=== PATIENT | male | born 1985 | race African-American/Black ===

== ENCOUNTER 2020-09-02 12:46 | Observation (INO) | payer OTHER, SELFPAY ==
[2020-09-02 12:47] VITALS: BP 145/83; PULSE 109; RESP 19; TEMP 36.9; O2SAT 95; BMI 58.8
--- NOTE | 2020-09-02 12:50 | CT_ITS ---
STUDY: CT BRAIN WITHOUT CONTRAST REASON FOR EXAM: Male, 35 years old. Seizure RADIATION DOSAGE (If Supplied By Facility): CTDIvol = ( 44.99 ) mGy, DLP = ( 863.60 ) mGycm TECHNIQUE: Transaxial CT imaging of the brain was performed without administration of intravenous contrast material. Individualized dose optimization techniques were used for this CT. COMPARISON: No relevant priors. FINDINGS: Normal soft tissue structures. Normal calvarium. Normal size ventricles and extra-axial spaces for the patient''s age. Normal white matter tracts of the cerebral hemispheres. Normal basal ganglia and thalami. Normal brainstem. Normal cerebellum. There is no intracranial hemorrhage. There are no findings of an acute ischemic infarction. There is a 2.4 cm x 2.1 cm retention cyst or polyp at the base of the left maxillary sinus. CT/Brain/Head without Contrast IMPRESSION: No acute abnormality is seen. Retention cyst or polyp is seen at the base of the left maxillary sinus. Electronically Signed: Tom Bateman MD at 13:25 EDT , Service support ,
--- NOTE | 2020-09-02 12:54 | EKG12_ITS ---
Test Reason : SEIZURE Blood Pressure : / mmHG Vent. Rate : 106 BPM Atrial Rate : 106 BPM P-R Int : 156 ms QRS Dur : 108 ms QT Int : 368 ms P-R-T Axes : 054 067 015 degrees QTc Int : 488 ms Sinus tachycardia Otherwise normal ECG Confirmed by KELSI MARROQUIN, JOSH ([id number]), visual effects editor SANDEE YODER ([id number]) on 09/04/2020 9:39:06 AM Referred By: MARTHA Confirmed By:JOSH DOLAN MD
--- NOTE | 2020-09-02 12:54 | EDS_ITS ---
HPI History of Present Illness Chief Complaint: Seizure Informant: patient and EMS Narrative Narrative: Patient presents after having a full tonic-clonic seizure. He has never had a seizure before. Coworkers state that he was standing talking to him and the patient started to feel weird. He then started to have a full tonic- clonic seizure which lasted about 5 minutes. He did bite his tongue. EMS was called and upon their arrival he was still seizing. They started to draw up Versed but then the patient started to stop seizing. His mental status improved throughout transport. Patient tells me he has no history of seizures. He states that recently he stopped taking diclofenac for back pain but he has not stopped or started any new medications. He states he drinks occasionally is not a daily drinker. He did drink alcohol at a wedding this weekend. He denies any other drug use. He has not had a headache, neck pain. He denies any shortness of breath. [facility] Medical History (Updated 09/02/20 @ 14:[address] Mil Rowland MD) GERD (gastroesophageal reflux disease) Hypertension Home Medications Lisinopril/Hydrochlorothiazide [Zestoretic 20/12.5 Tablet] 1 tab PO DAILY 03/21/14 [History Last Taken Unknown] amlodipine 10 mg PO DAILY 03/21/14 [History Last Taken Unknown] dexlansoprazole [Dexilant] 40 mg PO DAILY 03/21/14 [History Last Taken Unknown] Allergy/AdvReac Type Severity Reaction Status Date / Time No Known Allergies Allergy Verified 09/02/20 12:47 Social History Smoking Status: Never smoker ROS ROS ED Constitutional Constitutional ED: Denies chills or fever(s) Eyes Eyes: Denies blurry vision, change in vision, diplopia or loss of vision ENT ENT ED: Reports other; Denies ear pain, rhinorrhea or sore throat Cardiovascular Cardiovascular: Denies chest pain, palpitations or racing heartbeat Respiratory/Chest Respiratory/Chest: Denies cough, dyspnea, dyspnea on exertion or sputum Gastrointestinal Gastrointestinal: Denies abdominal pain, diarrhea, nausea or vomiting Genitourinary Genitourinary ED: Denies dysuria, hematuria or urinary frequency Musculoskeletal Musculoskeletal: Denies back pain, myalgias or neck pain Integumentary Denies abscess or rash Neurologic Neurologic: Reports other Details: Seizure Psychiatric Psychiatric: Denies anxiety or depression Endocrine Endocrinology: Denies polydipsia or polyuria Hematologic/Lymphatic Hematologic/Lymphatic: Denies easy bleeding or easy bruising Allergic/Immunologic Allergic/Immunologic ED: Denies urticaria EXAM Physical Exam Const Vital Signs: 09/02/20 12:47 Temperature 98.4 F Temperature Source Temporal Pulse Rate 109 H Respiratory Rate 19 H Blood Pressure 145/83 H Blood Pressure Mean 103 Pulse Ox 95 Oxygen Delivery Method Room Air Positive well nourished and well developed General Appearance ED: well developed and NAD HEENT Reports normocephalic and head/scalp atraumatic HEENT Narrative: He does have evidence of tongue trauma with a small bite deepthi on the left side of the tongue. Bleeding is currently controlled. normocephalic and atraumatic; Negative for tenderness Eyes PERRL and EOMs intact bilaterally General Eye ED: Negative for scleral icterus Neck supple and no JVD Chest Wall palpation of chest normal Chest: Negative for tenderness Resp normal respiratory effort and clear to auscultation bilaterally Effort and Inspection: Negative for respiratory distress Cardio regular rhythm; Negative for no murmurs Rate: tachycardic GI soft to palpation, non-tender and non-distended Palpation: soft Back/Spine no CVA tenderness and no thoracic nor lumbar tenderness Cervical Spine: Negative for cervical spine tenderness Extremity normal to inspection General Extremety ED: Negative for tenderness Neuro oriented x3, CN's II-XII intact bilaterally and no sensory deficits noted Sensorium / Orientation: awake and alert Motor Exam: strength 5/5 throughout Psych mental status grossly normal Skin no rashes or lesions noted MDM MDM MDM Narrative Medical decision making narrative: The patient is currently alert and oriented x3. His GCS is 15. I did give him a dose of IV Keppra. His labs show white blood count 12.9, potassium 3.3, carbon dioxide of 20 and an anion gap of 16. His lactate is 8.9, likely due to the seizure. CAT scan of the head is obtained and does not show any acute abnormalities. His alcohol level is normal. His drug screen is negative. At this point I am not quite sure why he had a seizure. Due to this I feel he needs to be admitted to the hospital. Spoke with hospitalist for admission. Lab Data Labs: Laboratory Results - last 24 hr 09/02/20 09/02/20 09/02/20 12:37 12:37 12:37 WBC 12.9 H RBC 5.03 Hgb 13.9 Hct 45.2 MCV 89.9 MCH 27.6 MCHC 30.8 L RDW Std Deviation 44.0 H RDW Coeff of Sujatha 13.4 Plt Count 216 MPV 12.5 H Immature Gran % (Auto) 1.000 H Neut % (Auto) 58.0 Lymph % (Auto) 30.8 Collier % (Auto) 8.5 Eos % (Auto) 1.5 Baso % (Auto) 0.2 Absolute Neuts (auto) 7.5 Absolute Lymphs (auto) 3.98 Nucleated RBC % 0 Sodium 135 L Potassium 3.3 L Chloride 99 Carbon Dioxide 20.0 L Anion Gap 16 H BUN 11 Creatinine 1.22 Estim Creat Clear Calc 103.76 Est GFR (MDRD) Af Amer 87 Est GFR (MDRD) Non-Af 72 BUN/Creatinine Ratio 9.0 L Glucose 126 H Lactic Acid Calcium 8.8 Total Bilirubin 0.50 AST 32 ALT 49 Alkaline Phosphatase 64 Total Protein 8.4 H Albumin 3.9 Globulin 4.5 H Albumin/Globulin Ratio 0.9 Ethyl Alcohol 5.0 09/02/20 12:37 WBC RBC Hgb Hct MCV MCH MCHC RDW Std Deviation RDW Coeff of Sujatha Plt Count MPV Immature Gran % (Auto) Neut % (Auto) Lymph % (Auto) Collier % (Auto) Eos % (Auto) Baso % (Auto) Absolute Neuts (auto) Absolute Lymphs (auto) Nucleated RBC % Sodium Potassium Chloride Carbon Dioxide Anion Gap BUN Creatinine Estim Creat Clear Calc Est GFR (MDRD) Af Amer Est GFR (MDRD) Non-Af BUN/Creatinine Ratio Glucose Lactic Acid 8.9 H* Calcium Total Bilirubin AST ALT Alkaline Phosphatase Total Protein Albumin Globulin Albumin/Globulin Ratio Ethyl Alcohol Radiography Diagnostic Testing: Radiology Impression Brain CT 09/02/20 12:50 IMPRESSION: No acute abnormality is seen. Retention cyst or polyp is seen at the base of the left maxillary sinus. Electronically Signed: Tom Bateman MD at 13:25 EDT , Service support , EKG Initial EKG: Comments: Sinus tachycardia with a rate of 106. No ST changes noted. QTc 488, SC interval 156 Critical Care Time Critical Care Time: Yes Critical care time (excluding procedures): 30-74 minutes (30 minutes), Discussing w/Patient &/or Family/[employer]er, Discussing w/Consultants, Arranging Admission or Transfer and Performing Direct Patient Care at Bedside Discharge Plan Triage Chief Complaint: Seizure ED Provider: Mil Rowland Dx/Rx/DC Orders Clinical Impression: New onset seizure Prescriptions: No Action amlodipine 5 MG tablet 10 mg PO DAILY RF: 0 Dexilant 30 MG capsule,biphase delayed releas 40 mg PO DAILY RF: 0 Lisinopril/Hydrochlorothiazide [Zestoretic 20/12.5 Tablet] 1 TABLET tablet 1 tab PO DAILY RF: 0 Referrals: Rekha Galindo [Other] Disposition Disposition: Acute Care [facility]
[2020-09-02 13:02] LABS: Absolute Lymphocyte Count 3.98 X10^3/uL (0.83-4.51); Absolute Neutrophil Count 7.5 X10^3/uL (2.0-7.7); Basophil# 0.03 X10^3/uL; Basophil% 0.2 % (0-1); Eosinophils% 1.5 % (0-5); Hematocrit 45.2 % (40-54); Hemoglobin 13.9 g/dL (13.0-16.5); Lymphocyte # 3.98 X10^3/ul (0.83-4.51); Lymphocyte % 30.8 % (19-41); Mean Corp Hgb Conc 30.8 g/dL (32-36); Mean Corpuscular Hgb 27.6 pg (27.0-32.0); Mean Corpuscular Volume 89.9 fL (80-94); Mean Platelet Vol. 12.5 fl (6.2-12.0); Monocyte% 8.5 % (0-10); NRBC Flagged by Analyzer 0 % (0-5); Platelet Count 216 K/mm3 (150-450); RBC Distribution Width CV 13.4 % (11.6-14.6); Red Blood Count 5.03 M/mm3 (4.6-6.2); White Blood Count 12.9 K/mm3 (4.4-11.0)
[2020-09-02 13:23] LABS: ALB/GLOB Ratio 0.9 RATIO (0.9-2.4); AST(SGOT) 32 U/L (15-37); Alanine Aminotransfer ALT/SGPT 49 U/L (16-61); Albumin, Serum 3.9 g/dL (3.2-5.0); Alkaline Phosphatase 64 U/L (45-117); Anion Gap 16 (5-15); BUN 11 mg/dL (7-18); Calcium,Total 8.8 mg/dL (8.5-10.1); Chloride 99 mmol/L (98-107); Creatinine, Serum 1.22 mg/dL (0.70-1.30); EST Glomerular Filtration Rate 72 mL/min (>60); Est Glom Filt Rate - Afr Amer 87 mL/min (>60); Estimated Creatinine Clearance 103.76 ml/min; Globulin 4.5 g/dL (2.2-4.2); Glucose 126 mg/dL (74-106); Potassium 3.3 mmol/L (3.5-5.1); Protein, Total 8.4 g/dL (6.4-8.2); Sodium Level 135 mmol/L (136-145)
[2020-09-02] MEDS: levETIRAcetam IV 1,000 MG/100 ML BAG 400 MG IV (13:39)
[2020-09-02 13:49] LABS: Lactic Acid 8.9 mmol/L (0.4-1.9)
[2020-09-02 14:06] LABS: Allen Test Positive; Base Excess 1 mmol/L (-2 to +2); Bicarbonate 25.5 mmol/L (22-26); Blood Gas Specimen Type ART; PO2 81 mmHG (75-100); SITE R Radial; SO2 96 % (95-99); Total Carbon Dioxide 27 mmol/L; pCO2 38.9 mmHg (35-45); pH 7.42 (7.35-7.45)
--- NOTE | 2020-09-02 14:09 | PCM.HP.STD ---
HPI - General General Date of Admission: 09/02/20 HPI Narrative HAILY HOLT, is a 35 M who presents with a tonic-clonic seizure, that happened today. Patient has multiple comorbidities including super morbid obesity, obstructive sleep apnea, noncompliant with CPAP, hypertension, GERD, chronic herniated disc in the low back region. 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 Patient woke up in the EMS. He was transiently confused but identified his best friend next to him in the EMS. There was no incontinence of urine or stool. Patient did not require any use of benzodiazepines. He was alert and oriented by the time he got to the ED. Patient stated that he has no recent illness. He was on diclofenac for his herniated disks and is due for steroid injections of the back and has been off diclofenac for 2 to 3 days. He is a social drinker and drank about 8-10 beers 2 days prior to admission after waiting. He stated that he would drink like this,maybe once, every 2 months. He denied any use of illicit drugs. No history of seizures. [facility] Medical History (Updated 09/02/20 @ 15:[address] Kirsten Spear MD) GERD (gastroesophageal reflux disease) Hypertension Home Medications acetaminophen [Tylenol Extra Strength] 1,000 mg PO BID 09/02/20 [History Last Taken 09/02/20] amlodipine 10 mg PO DAILY 09/02/20 [History Last Taken 09/02/20] diclofenac sodium 75 mg PO BID 09/02/20 [History Last Taken 08/31/20] escitalopram oxalate 20 mg PO DAILY 09/02/20 [History Last Taken 09/02/20] esomeprazole magnesium 40 mg PO DAILY 09/02/20 [History Last Taken 09/02/20] fluorometholone 1 drp EACH EYE BID 09/02/20 [History Last Taken 09/02/20] gabapentin [Neurontin] 300 - 900 mg PO QHS 09/02/20 [History Last Taken 09/01/20] lisinopril-hydrochlorothiazide 1 tab PO DAILY 09/02/20 [History Last Taken 09/02/20] Allergy/AdvReac Type Severity Reaction Status Date / Time No Known Allergies Allergy Verified 09/02/20 12:47 Family History (Updated 09/02/20 @ 15:[address] Kirsten Spear MD) Mother Unknown family medical history Father Hepatitis C Surgical History (Updated 09/02/20 @ 15:[address] Kirsten Spear MD) [place] teeth removed Social History (Updated 09/02/20 @ 15:[address] Kirsten Spear MD) adopted: Yes household members: spouse current occupational status: employed current occupation: teacher Smoking Status: Current every day smoker Smokeless tobacco user: chewing tobacco alcohol intake: current substance use type: does not use ROS ROS Narrative Constitutional: Reports: Malaise, Weakness, Fatigue. Denies: Anorexia, Chills, Fever, Night Sweats, Weight Change Eyes: Denies: Blurred vision, Cataracts, Conjunctivae Inflammation, Pain, Redness, Vision Change HEENT: Admits to pain in his tongue denies: Difficulty Hearing, Difficulty Swallowing, Head Aches, Hearing Changes, Sinus Congestion, Sinus Drainage Cardiovascular: Denies: Chest Pain, Orthopnea, Palpitations Respiratory: Denies: Cough, Shortness of breath at rest, Sputum production Gastrointestinal: Denies: Abdominal Pain, Nausea, Vomiting Genitourinary: Denies: Dysuria Musculoskeletal: Denies: Joint Pain, Joint stiffness, Joint swelling, Joint Tenderness Skin: Denies: Rash, Wounds Neurological: Denies: Numbness, Tingling, Focal weakness Vital Signs Vital Signs Vital Signs: 09/02/20 12:47 Temperature 98.4 F Temperature Source Temporal Pulse Rate 109 H Respiratory Rate 19 H Blood Pressure 145/83 H Blood Pressure Mean 103 Pulse Ox 95 Oxygen Delivery Method Room Air Weight Weight: 219.5 kg Body Mass Index (BMI) 58.8 Physical Exam Narrative Physical exam: General: Alert, Oriented x3, Cooperative, No apparent distress, Well developed, super morbidly obese HEENT: Atraumatic Oral: Moist Mucosa, left anterior tip bruise, from biting during seizure episode Neck: Supple Lungs: Clear to auscultation Cardiovascular: HS I+II, regular, no murmurs Abdomen: Bowel Sounds Present, Soft, Non Tender Extremities: No edema Skin: No rashes, No breakdown Neurological: Grossly intact Psych/Mental Status: Appropriate Lab / Micro Data Result Diagrams: 09/02/20 12:37 09/02/20 12:37 Labs: Laboratory Results - last 24 hr 09/02/20 09/02/20 09/02/20 12:37 12:37 12:37 WBC 12.9 H RBC 5.03 Hgb 13.9 Hct 45.2 MCV 89.9 MCH 27.6 MCHC 30.8 L RDW Std Deviation 44.0 H RDW Coeff of Sujatha 13.4 Plt Count 216 MPV 12.5 H Immature Gran % (Auto) 1.000 H Neut % (Auto) 58.0 Lymph % (Auto) 30.8 Sevier % (Auto) 8.5 Eos % (Auto) 1.5 Baso % (Auto) 0.2 Absolute Neuts (auto) 7.5 Absolute Lymphs (auto) 3.98 Nucleated RBC % 0 Sodium 135 L Potassium 3.3 L Chloride 99 Carbon Dioxide 20.0 L Anion Gap 16 H BUN 11 Creatinine 1.22 Estim Creat Clear Calc 103.76 Est GFR (MDRD) Af Amer 87 Est GFR (MDRD) Non-Af 72 BUN/Creatinine Ratio 9.0 L Glucose 126 H Lactic Acid Calcium 8.8 Total Bilirubin 0.50 AST 32 ALT 49 Alkaline Phosphatase 64 Total Protein 8.4 H Albumin 3.9 Globulin 4.5 H Albumin/Globulin Ratio 0.9 Ethyl Alcohol 5.0 09/02/20 12:37 WBC RBC Hgb Hct MCV MCH MCHC RDW Std Deviation RDW Coeff of Sujatha Plt Count MPV Immature Gran % (Auto) Neut % (Auto) Lymph % (Auto) Sevier % (Auto) Eos % (Auto) Baso % (Auto) Absolute Neuts (auto) Absolute Lymphs (auto) Nucleated RBC % Sodium Potassium Chloride Carbon Dioxide Anion Gap BUN Creatinine Estim Creat Clear Calc Est GFR (MDRD) Af Amer Est GFR (MDRD) Non-Af BUN/Creatinine Ratio Glucose Lactic Acid 8.9 H* Calcium Total Bilirubin AST ALT Alkaline Phosphatase Total Protein Albumin Globulin Albumin/Globulin Ratio Ethyl Alcohol ABG Data ABG results: ABG 09/02/20 14:00 Specimen Type ART Sample Site R Radial pH 7.42 Bicarbonate Actual 25.5 Total CO2 27 Base Excess 1 O2 Saturation 96 ABG pCO2 38.9 ABG pO2 81 Dwayne Test Positive Radiology Impression Brain CT 09/02/20 12:50 IMPRESSION: No acute abnormality is seen. Retention cyst or polyp is seen at the base of the left maxillary sinus. Electronically Signed: Tom Bateman MD at 13:25 EDT , Service support , Assessment & Plan Assessment/Plan (1) Leucocytosis: QUALIFIERS: Leukocytosis type: other Qualified Code(s): D72.828 - Other elevated white blood cell count (2) Hypokalemia: (3) Hypomagnesemia: (4) HTN (hypertension): QUALIFIERS: Hypertension type: essential hypertension Qualified Code(s): I10 - Essential (primary) hypertension (5) Hyponatremia: (6) Allergies: QUALIFIERS: Encounter type: initial encounter Qualified Code(s): T78.40XA - Allergy, unspecified, initial encounter (7) Lactic acidosis: (8) High anion gap metabolic acidosis: PLAN: 1. New onset seizures, unclear etiology for now, one episode of tonic-clonic seizure Patient has recent alcohol use, admitting alcohol level is 5 Received IV Keppra in the ED. urine tox is pending We will admit to PCU, monitor on seizure precautions, SOC consult, MRI brain, We will hold off on continuing on Keppra pending teleneurology recommendations Continue to monitor, Ativan as needed 2. Elevated anion gap metabolic acidosis from lactic acidosis from #1 We will trend 3. Leukocytosis, likely reactive, no signs of sepsis 4. Electrolyte imbalances?hypomagnesemia, hypokalemia, hyponatremia likely secondary to alcohol abuse Will replace, recheck in am 5. Alcohol abuse, patient denied daily use, admitting alcohol level is 5 Will monitor with CIWA. Will not start on phenobarb or ativan Continue on folic acid, thiamine, multivitamins 6. Nicotine dependence, chews tobacco, advised to quit, continue on nicotine replacement 7. Hypertension, BP slightly uncontrolled in the ED On amlodipine, Lisinopril-HCTZ Will continue on amlodipine, Lisinopril and hold off Hydrochlorothiazide in light of recent electrolyte imbalances. 8. Obstructive sleep apnea, noncompliant with CPAP,/morbid obesity, complicates care, Patient will need to follow-up with traffic representative in the outpatient for sleep apnea evaluation 9. DVT PPx- low risk; early ambulation recommended Visit Charges Inpatient E&M: 20048 Init Hosp L3
[2020-09-02 14:14] VITALS: BP 132/67; PULSE 91; RESP 18; TEMP 36.6; O2SAT 96
[2020-09-02 14:25] LABS: Magnesium 1.9 mg/dL (1.6-2.6)
[2020-09-02 15:12] VITALS: PULSE 81
[2020-09-02 15:14] VITALS: BMI 57.9
--- NOTE | 2020-09-02 15:21 | TELEMED_ITS ---
SOC Telemed has confirmed receipt of a request for visit. This document confirms receipt of the order initiating the consult. To find the results of the consultation, please view the patient's reports for the scanned Telemed Consult.
[2020-09-02 15:25] VITALS: BP 144/76; PULSE 88; RESP 16; TEMP 37.3; O2SAT 96
[2020-09-02 15:38] LABS: Amphetamine Urine VISTA NEGATIVE (<1000 ng/mL); Barbiturate Urine VISTA NEGATIVE (< 200 ng/mL); Benzodiazepine Urine VISTA NEGATIVE (< 200 ng/mL); Cocaine Urine VISTA NEGATIVE (< 300 ng/mL); Ecstacy Urine VISTA NEGATIVE (< 500 ng/mL); Methadone Urine VISTA NEGATIVE (< 300 ng/mL); PCP Urine VISTA NEGATIVE (< 25 ng/mL); THC Urine VISTA NEGATIVE (< 50 ng/mL); Vista UDS pH Range 5
[2020-09-02] MEDS: Loratadine 10 MG Tablet PO (16:14)
[2020-09-02] MEDS: Potassium Chloride Oral Tablet 20 MEQ 60 MEQ PO (16:14)
[2020-09-02] MEDS: Thiamine Hydrochloride 100 MG Tablet PO (16:15)
[2020-09-02 16:59] LABS: Reflex Lactate? Y
[2020-09-02] MEDS: LORazepam 2 MG/ML Syringe 1 MG IV (17:50)
[2020-09-02 18:25] LABS: Lactic Acid 1.3 mmol/L (0.4-1.9)
[2020-09-02 19:00] VITALS: PULSE 77
[2020-09-02 19:28] LABS: CPK Total, Creatine Kinase 785 U/L (39-308)
[2020-09-02] MEDS: Thiamine Hydrochloride 100 MG Tablet 500 MG PO (20:46)
[2020-09-02] MEDS: Acetaminophen 500 MG Tablet 1000 MG PO (20:46)
[2020-09-02 20:50] VITALS: BP 154/49; PULSE 70; RESP 18; TEMP 36.9; O2SAT 96
[2020-09-03 02:17] VITALS: BP 132/79; PULSE 58; RESP 16; TEMP 36.6; O2SAT 98
[2020-09-03] MEDS: traMADol 50 MG Tablet PO ×2 (02:19→10:23)
[2020-09-03 03:00] VITALS: PULSE 66
[2020-09-03 06:17] VITALS: BP 128/77; PULSE 87; RESP 18; TEMP 36.6; O2SAT 96
[2020-09-03] MEDS: Thiamine Hydrochloride 100 MG Tablet 500 MG PO (06:18)
[2020-09-03 06:50] LABS: Absolute Lymphocyte Count 2.29 X10^3/uL (0.83-4.51); Absolute Neutrophil Count 5.5 X10^3/uL (2.0-7.7); Basophil# 0.02 X10^3/uL; Basophil% 0.2 % (0-1); Eosinophil# 0.14 X10^3/uL; Eosinophils% 1.6 % (0-5); Hematocrit 41.8 % (40-54); Hemoglobin 13.4 g/dL (13.0-16.5); Lymphocyte # 2.29 X10^3/ul (0.83-4.51); Mean Corp Hgb Conc 32.1 g/dL (32-36); Mean Corpuscular Hgb 28.3 pg (27.0-32.0); Mean Corpuscular Volume 88.4 fL (80-94); Mean Platelet Vol. 12.7 fl (6.2-12.0); Monocyte# 0.79 X10^3/uL; NRBC Flagged by Analyzer 0 % (0-5); Neutrophil # 5.54 X10^3/uL (2.7-7.7); Neutrophil % 62.9 % (47-70); Platelet Count 171 K/mm3 (150-450); RBC Distribution Width CV 13.4 % (11.6-14.6); RBC Distribution Width SD 43.8 fl (35.1-43.9); Red Blood Count 4.73 M/mm3 (4.6-6.2); White Blood Count 8.8 K/mm3 (4.4-11.0)
[2020-09-03 07:00] VITALS: PULSE 71
[2020-09-03 07:39] LABS: ALB/GLOB Ratio 0.8 RATIO (0.9-2.4); AST(SGOT) 52 U/L (15-37); Alanine Aminotransfer ALT/SGPT 49 U/L (16-61); Albumin, Serum 3.4 g/dL (3.2-5.0); Alkaline Phosphatase 52 U/L (45-117); Anion Gap 6 (5-15); BUN 11 mg/dL (7-18); BUN/Creat Ratio 12.4 RATIO (10-20); Chloride 104 mmol/L (98-107); Creatinine, Serum 0.89 mg/dL (0.70-1.30); EST Glomerular Filtration Rate 103 mL/min (>60); Est Glom Filt Rate - Afr Amer 125 mL/min (>60); Estimated Creatinine Clearance 142.23 ml/min; Globulin 4.2 g/dL (2.2-4.2); Glucose 98 mg/dL (74-106); Potassium 4.5 mmol/L (3.5-5.1); Protein, Total 7.6 g/dL (6.4-8.2); Sodium Level 139 mmol/L (136-145)
[2020-09-03 08:21] LABS: CPK Total, Creatine Kinase 1085 U/L (39-308)
[2020-09-03 08:52] VITALS: BP 138/78; PULSE 66; RESP 18; TEMP 36.4; O2SAT 97
[2020-09-03] MEDS: Escitalopram Oxalate 20 MG Tablet PO (08:57)
[2020-09-03] MEDS: Loratadine 10 MG Tablet PO (08:57)
[2020-09-03] MEDS: amLODIPine 10 MG Tablet PO (08:57)
[2020-09-03] MEDS: Pantoprazole Sodium 40 MG Tablet PO (08:58)
[2020-09-03] MEDS: Folic Acid 1 MG Tablet PO (08:58)
[2020-09-03] MEDS: Lisinopril 20 MG Tablet PO (08:58)
[2020-09-03] MEDS: Thiamine Hydrochloride 100 MG Tablet PO (08:58)
[2020-09-03] MEDS: Multivitamins,Ther W-Minerals Tablet 1 TABLET PO (08:58)
[2020-09-03] MEDS: Acetaminophen 500 MG Tablet 1000 MG PO (08:58)
--- NOTE | 2020-09-03 11:50 | CASEMGMT ---
ANDRESSA MEYERS assessment: Face to Face with patient for initial transition planning/care coordination assessment. ANDRESSA MEYERS introduced self and role at [facility], pt voices understanding and consents to assessment. Pt lying in bed in no distress. Pt is A/Ox4 and answers all questions appropriately. Pt's is at bedside during assessment. Care providers, pharmacy, and demographics verified. Presentation: New onset seizure, witnessed Admitting dx: New onset seizure PCP: Rekha Galindo in [facility] Specialists: [facility]o in [place] Preferred Pharmacy: [facility] Insurance: MMO Prescription Benefit: MMO Living Will/HPOA: Pt states does not have LW/HPOA. LNOK: Stephanie Barrera, ; Joss/Caitlin Bruce, parents Living Arrangements: Pt lives with in home and states no concerns at home at this time. Pt states is independent with ADL's. Transportation: Pt drives self and states no transportation concerns. DME/HHC: Pt states no current DME or need for any. Pt has no hx of HHC or SNF. Pt states no concerns with going home at time of discharge. Pt works multimedia developer. Pt states no further concerns/needs. CM to follow for any further discharge planning/needs. Advised pt to ask for CM if any further questions/concerns/needs, voices understanding. Pt Goal: Home Plan[place] ANDRESSA MEYERS
--- NOTE | 2020-09-03 14:47 | PCM.DC ---
Discharge Instructions Diet Discharge Diet: 2000 Calorie Control Diet Activity Discharge Activity: Return to Normal Activity and May Not Drive (Until released by neurology) Dressing / Incision Call your doctor if you observe: - (Recurrent seizure) Follow Up Care Test Results: Test results from this visit will be discussed in further detail at your follow-up appointment, if applicable. Discharge Plan Admission Admit Date/Time: 09/02/20 14:08 Primary Reason for Your Visit: Seizure Attending Provider: Moe Ferrer Instructions Additional Instructions / Restrictions: Follow-up with neurologist of choice in 1-2 weeks. Discharge Orders/Prescriptions Prescriptions: New thiamine HCl (vitamin B1) [Vitamin B-1] 100 mg Tablet 100 mg PO BIDCM Qty: 60 RF: 0 levetiracetam [Keppra] 500 mg tablet 500 mg PO BID Qty: 60 RF: 0 Continued esomeprazole magnesium 40 mg capsule,delayed release(DR/EC) 40 mg PO DAILY RF: 0 lisinopril-hydrochlorothiazide 20-12.5 mg tablet 1 tab PO DAILY RF: 0 amlodipine 10 mg tablet 10 mg PO DAILY RF: 0 fluorometholone 0.1 % drops,suspension 1 drp EACH EYE BID RF: 0 gabapentin [Neurontin] 300 mg capsule 300 - 900 mg PO QHS RF: 0 diclofenac sodium 75 mg tablet,delayed release (DR/EC) 75 mg PO BID RF: 0 acetaminophen 500 mg Capsule 1,000 mg PO BID RF: 0 escitalopram oxalate 20 mg tablet 20 mg PO DAILY RF: 0 Referrals / Follow Up: Rekha Galindo [Other] - In 1 Week Rekha Galindo [Other] Disposition Disposition (needs filled in before D/C Order can be placed): Home, self care
--- NOTE | 2020-09-03 15:02 | PCM.DC.SUM ---
Documented by User: Melissa Nelson NP, SKIN THERAPIST-C 09/03/20 15:24 Providers Date of Admission: 09/02/20 Date of Discharge: 09/03/20 Primary Care Physician: Rekha Galindo Reason For Visit: NEW ONSET SEIZURES Diagnosis Discharge Diagnosis (1) Leucocytosis: Status: Acute Code(s): D72.829 - Elevated white blood cell count, unspecified Qualifiers: Leukocytosis type: other Qualified Code(s): D72.828 - Other elevated white blood cell count (2) Hypokalemia: Status: Acute Code(s): E87.6 - Hypokalemia (3) Hypomagnesemia: Status: Acute Code(s): E83.42 - Hypomagnesemia (4) HTN (hypertension): Status: Chronic Code(s): I10 - Essential (primary) hypertension Qualifiers: Hypertension type: essential hypertension Qualified Code(s): I10 - Essential (primary) hypertension (5) Hyponatremia: Status: Acute Code(s): E87.1 - Hypo-osmolality and hyponatremia (6) Allergies: Status: Acute Code(s): T78.40XA - Allergy, unspecified, initial encounter Qualifiers: Encounter type: initial encounter Qualified Code(s): T78.40XA - Allergy, unspecified, initial encounter (7) Lactic acidosis: Status: Acute Code(s): E87.2 - Acidosis (8) High anion gap metabolic acidosis: Status: Acute Code(s): E87.2 - Acidosis Medications at Discharge Home Medications acetaminophen 1,000 mg PO BID 09/02/20 amlodipine 10 mg PO DAILY 09/02/20 diclofenac sodium 75 mg PO BID 09/02/20 escitalopram oxalate 20 mg PO DAILY 09/02/20 esomeprazole magnesium 40 mg PO DAILY 09/02/20 fluorometholone 1 drp EACH EYE BID 09/02/20 gabapentin [Neurontin] 300 - 900 mg PO QHS 09/02/20 lisinopril-hydrochlorothiazide 1 tab PO DAILY 09/02/20 levetiracetam [Keppra] 500 mg PO BID #60 tab 09/03/20 thiamine HCl (vitamin B1) [Vitamin B-1] 100 mg PO BIDCM #60 tab 09/03/20 Hospital Course Operations None Procedures Electroencephalogram Summary of Care Provided Minutes Spent on Discharge: 35 Hospital Course: Patient is a 35-year-old male admitted 09/02/2020 due to seizure. 1. New onset tonic-clonic seizure-EEG unremarkable. Unable to have MRI of brain with and without contrast due to patient's size. Will order outpatient MRI and patient may complete at facility that is able to accommodate. Patient states he will find neurologist in network where he resides. IV Keppra 1 g x 1 during admission. Discharged on Keppra 500 mg twice daily. Patient instructed no driving for 6 months or until cleared by neurology. Follow-up with neurology in 1 to 2 weeks. No further seizure activity during admission. 2. Leukocytosis/lactic acidosis-reactive secondary to #1. 3. Hypertension-stable, on amlodipine, lisinopril/HCTZ. 4. Super morbid obesity-diet and lifestyle modifications encouraged. Patient states he is trying to lose weight however lower back pain has been making this difficult. 5. EUNICE on CPAP-noncompliant with CPAP. 6. GERD-on PPI. 7. Chronic lumbar back pain/herniated disc- undergoing outpatient treatment/follow up. 8. Tobacco dependence-encouraged cessation. Patient seen and examined prior to discharge. Physical assessment as noted below. Patient is stable for discharge with follow up recommendations as noted above. This patient was seen by DEVON Adler under the supervision of Dr. Ferrer. Physical Exam Const alert, oriented x3 and no apparent distress Orientation / Consciousness: awake, oriented to person, oriented to place and oriented to time Nutritional Appearance: obese morbidly obese HEENT normocephalic and moist oral mucous membranes Eyes PERRL, EOMs intact bilaterally and conjunctivae normal Neck no lymphadenopathy Resp normal respiratory effort and clear to auscultation bilaterally Cardio regular rate, regular rhythm and no murmurs Peripheral Pulses: pulses 2+ throughout GI normal to inspection, nondistended, normoactive bowel sounds, non-tender and non-distended Inspection: central obesity Extremity normal to inspection Skin no rashes or lesions noted Lesions: no lesions Rashes: no rashes Trauma: no lacerations or abrasions Neuro CN's II-XII intact bilaterally, no focal motor deficits, no sensory deficits noted and deep tendon reflexes 2+ bilaterally Psych mental status grossly normal and affect normal ABG / Lab / Microbiology Data Result Diagrams: 09/03/20 06:30 09/03/20 06:30 Laboratory: Laboratory Results - last 24 hr 09/02/20 09/02/20 09/02/20 14:50 17:42 17:42 WBC RBC Hgb Hct MCV MCH MCHC RDW Std Deviation RDW Coeff of Sujatha Plt Count MPV Immature Gran % (Auto) Neut % (Auto) Lymph % (Auto) [place] % (Auto) Eos % (Auto) Baso % (Auto) Absolute Neuts (auto) Absolute Lymphs (auto) Nucleated RBC % Sodium Potassium Chloride Carbon Dioxide Anion Gap BUN Creatinine Estim Creat Clear Calc Est GFR (MDRD) Af Amer Est GFR (MDRD) Non-Af BUN/Creatinine Ratio Glucose Lactic Acid 1.3 Calcium Magnesium Total Bilirubin AST ALT Alkaline Phosphatase Total Creatine Kinase 785 H Total Protein Albumin Globulin Albumin/Globulin Ratio Urine Opiates Screen NEGATIVE Urine Methadone Screen NEGATIVE Ur Barbiturates Screen NEGATIVE Ur Phencyclidine Scrn NEGATIVE Ur Amphetamines Screen NEGATIVE U Methamphetamin-MDMA NEGATIVE U Benzodiazepines Scrn NEGATIVE Urine Cocaine Screen NEGATIVE U Cannabinoids Screen NEGATIVE 09/03/20 09/03/20 09/03/20 06:30 06:30 06:30 WBC 8.8 RBC 4.73 Hgb 13.4 Hct 41.8 MCV 88.4 MCH 28.3 MCHC 32.1 RDW Std Deviation 43.8 RDW Coeff of Sujatha 13.4 Plt Count 171 MPV 12.7 H Immature Gran % (Auto) 0.300 Neut % (Auto) 62.9 Lymph % (Auto) 26.0 [place] % (Auto) 9.0 Eos % (Auto) 1.6 Baso % (Auto) 0.2 Absolute Neuts (auto) 5.5 Absolute Lymphs (auto) 2.29 Nucleated RBC % 0 Sodium 139 Potassium 4.5 Chloride 104 Carbon Dioxide 29.0 Anion Gap 6 BUN 11 Creatinine 0.89 Estim Creat Clear Calc 142.23 Est GFR (MDRD) Af Amer 125 Est GFR (MDRD) Non-Af 103 BUN/Creatinine Ratio 12.4 Glucose 98 Lactic Acid Calcium 9.0 Magnesium 2.0 Total Bilirubin 0.70 AST 52 H ALT 49 Alkaline Phosphatase 52 Total Creatine Kinase 1085 H Total Protein 7.6 Albumin 3.4 Globulin 4.2 Albumin/Globulin Ratio 0.8 L Urine Opiates Screen Urine Methadone Screen Ur Barbiturates Screen Ur Phencyclidine Scrn Ur Amphetamines Screen U Methamphetamin-MDMA U Benzodiazepines Scrn Urine Cocaine Screen U Cannabinoids Screen D/C Instructions Discharge Diet: 2000 Calorie Control Diet Discharge Activity: Return to Normal Activity and May Not Drive (Until released by neurology) Call your doctor if you observe: - (Recurrent seizure) Meaningful Use Info Meaningful Use Diagnoses (Choose all that apply): None applicable Discharge Plan Admission Admit Date/Time: 09/02/20 14:08 Primary Reason for Your Visit: Seizure Attending Provider: Moe Ferrer Instructions Additional Instructions / Restrictions: Follow-up with neurologist of choice in 1-2 weeks. Discharge Orders/Prescriptions Prescriptions: New thiamine HCl (vitamin B1) [Vitamin B-1] 100 mg Tablet 100 mg PO BIDCM Qty: 60 RF: 0 levetiracetam [Keppra] 500 mg tablet 500 mg PO BID Qty: 60 RF: 0 Continued esomeprazole magnesium 40 mg capsule,delayed release(DR/EC) 40 mg PO DAILY RF: 0 lisinopril-hydrochlorothiazide 20-12.5 mg tablet 1 tab PO DAILY RF: 0 amlodipine 10 mg tablet 10 mg PO DAILY RF: 0 fluorometholone 0.1 % drops,suspension 1 drp EACH EYE BID RF: 0 gabapentin [Neurontin] 300 mg capsule 300 - 900 mg PO QHS RF: 0 diclofenac sodium 75 mg tablet,delayed release (DR/EC) 75 mg PO BID RF: 0 acetaminophen 500 mg Capsule 1,000 mg PO BID RF: 0 escitalopram oxalate 20 mg tablet 20 mg PO DAILY RF: 0 Referrals / Follow Up: Rekha Galindo [Other] - In 1 Week Rekha Galindo [Other] Disposition Disposition (needs filled in before D/C Order can be placed): Home, self care Documented by User: Dr. Moe Ferrer DO 09/03/20 15:53 Providers Date of Admission: 09/02/20 Reason For Visit: NEW ONSET SEIZURES Medications at Discharge Home Medications acetaminophen 1,000 mg PO BID 09/02/20 amlodipine 10 mg PO DAILY 09/02/20 diclofenac sodium 75 mg PO BID 09/02/20 escitalopram oxalate 20 mg PO DAILY 09/02/20 esomeprazole magnesium 40 mg PO DAILY 09/02/20 fluorometholone 1 drp EACH EYE BID 09/02/20 gabapentin [Neurontin] 300 - 900 mg PO QHS 09/02/20 lisinopril-hydrochlorothiazide 1 tab PO DAILY 09/02/20 levetiracetam [Keppra] 500 mg PO BID #60 tab 09/03/20 thiamine HCl (vitamin B1) [Vitamin B-1] 100 mg PO BIDCM #60 tab 09/03/20 Hospital Course Operations None Procedures Electroencephalogram Summary of Care Provided Minutes Spent on Discharge: 32 Hospital Course: 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 Patient had a CAT scan and EEG that were unremarkable. Patient's episode was witnessed. Patient states that he has good sleep hygiene and. He does have sleep apnea and uses his CPAP for the most part except for when he has nasal congestion where he will not use. He denies any new medications. He states that he drinks occasionally not daily. So the likelihood of this being alcohol withdrawal seizure is extremely low. Patient, due to his body habitus, was unable to have an MRI performed here. Patient states that he has recently had an MRI done outpatient for his back which was a close unit. Patient will need to have an MRI of his brain to further evaluate and to follow-up with neurologist as outpatient. Patient has been advised to avoid driving for the next 6months, heights, bathing, swimming by himself. Neurology was consulted. Patient would be discharged with levetiracetam. Physical Exam Const alert and oriented x3 HEENT normocephalic Resp normal respiratory effort and clear to auscultation bilaterally Cardio regular rate, regular rhythm, S1 normal heart sound and S2 normal heart sound Neuro oriented x3 and CN's II-XII intact bilaterally Sensorium / Orientation: awake and alert ABG / Lab / Microbiology Data Result Diagrams: 09/03/20 06:30 09/03/20 06:30 Discharge Plan Admission Admit Date/Time: 09/02/20 14:08 Primary Reason for Your Visit: Seizure Attending Provider: Jopperi,Moe Instructions Additional Instructions / Restrictions: Follow-up with neurologist of choice in 1-2 weeks. Discharge Orders/Prescriptions Prescriptions: New thiamine HCl (vitamin B1) [Vitamin B-1] 100 mg Tablet 100 mg PO BIDCM Qty: 60 RF: 0 levetiracetam [Keppra] 500 mg tablet 500 mg PO BID Qty: 60 RF: 0 Continued esomeprazole magnesium 40 mg capsule,delayed release(DR/EC) 40 mg PO DAILY RF: 0 lisinopril-hydrochlorothiazide 20-12.5 mg tablet 1 tab PO DAILY RF: 0 amlodipine 10 mg tablet 10 mg PO DAILY RF: 0 fluorometholone 0.1 % drops,suspension 1 drp EACH EYE BID RF: 0 gabapentin [Neurontin] 300 mg capsule 300 - 900 mg PO QHS RF: 0 diclofenac sodium 75 mg tablet,delayed release (DR/EC) 75 mg PO BID RF: 0 acetaminophen 500 mg Capsule 1,000 mg PO BID RF: 0 escitalopram oxalate 20 mg tablet 20 mg PO DAILY RF: 0 Referrals / Follow Up: Rekha Galindo [Other] - In 1 Week Rekha Galindo [Other] Disposition Disposition (needs filled in before D/C Order can be placed): Home, self care Visit Charges Inpatient E&M: 08981 Disch Hosp
[2020-09-03 15:27] VITALS: BP 128/63; PULSE 68; RESP 18; TEMP 36.7; O2SAT 96
== END 2020-09-03 15:56 | disposition home or self-care (01) ==
LOC: ED 14:08 → PCU 09-03 06:34
PROVIDERS: Admitting Provider Internal Medicine; Emergency Provider Emergency Medicine
DX: R56.9 Unspecified convulsions (principal); I10 Essential (primary) hypertension; D72.829 Elevated white blood cell count, unspecified; E87.6 Hypokalemia; K21.9 Gastro-esophageal reflux disease without esophagitis; E66.01 Morbid (severe) obesity due to excess calories; G47.33 Obstructive sleep apnea (adult) (pediatric); E87.1 Hypo-osmolality and hyponatremia; E87.2 Acidosis; E83.42 Hypomagnesemia; G89.29 Other chronic pain; M51.26 Other intervertebral disc displacement, lumbar region; F17.220 Nicotine dependence, chewing tobacco, uncomplicated; Z68.43 Body mass index [BMI] 50.0-59.9, adult; Z91.19 Patient's noncompliance with other medical treatment and regimen; Z79.899 Other long term (current) drug therapy
CPT/HCPCS: 36415; 36600; 70450; 80053; 80307; 82077; 82550; 82803; 83605; 83735; 85025; 93005; 95819; 99285; A4216